=== PATIENT | male | born 1990 | race American Indian/Alaskan Native ===

== ENCOUNTER 2016-05-14 09:54 | Emergency (ER) | payer BC ==
[2016-05-14 10:00] VITALS: BP 124/80
--- NOTE | 2016-05-14 10:35 | Emergency Department Report ---
- General Chief Complaint: Upper Respiratory Infection Stated Complaint: SORE THROAT/STUFFY NOSE Time Seen by Provider: 05/14/16 10:18 Source: patient Mode of arrival: Ambulatory Limitations: No Limitations - History of Present Illness MD Complaint: cough, sore throat, sinus pain Severity: mild Associated Symptoms: chills, myalgias, headache, cough. denies: nausea, vomiting - Related Data Previous Rx's Medication Instructions Recorded Last Taken Type Ibuprofen [Motrin] 800 mg PO Q8H #30 tablet 04/27/14 07/25/14 10:00 Rx Acetaminophen/Codeine [Tylenol #3] 1 tab PO Q6H PRN #10 tab 08/09/14 Unknown Rx methOCARBAMOL [Robaxin] 500 mg PO Q6H PRN #14 tablet 08/09/14 Unknown Rx Gentamicin 0.3% Ophth Oint 1 applicatio OP Q4H #1 tube 07/31/15 Unknown Rx traMADol [Ultram 50 MG tab] 50 mg PO Q6HR PRN #10 tablet 07/31/15 Unknown Rx Azithromycin [Zithromax ORAL PWDR] 1 gm PO ONCE #1 packet 05/14/16 Unknown Rx predniSONE [Deltasone] 40 mg PO QDAY 5 Days 05/14/16 Unknown Rx Allergies Allergy/AdvReac Type Severity Reaction Status Date / Time No Known Allergies Allergy Verified 08/09/14 17:26 ED Review of Systems ROS: Stated complaint: SORE THROAT/STUFFY NOSE Other details as noted in HPI Constitutional: denies: chills, fever Eyes: denies: eye pain, eye discharge, vision change ENT: throat pain. denies: ear pain Respiratory: cough (green sputum), other Cardiovascular: denies: chest pain, palpitations Gastrointestinal: denies: abdominal pain, nausea, diarrhea Musculoskeletal: denies: back pain, joint swelling, arthralgia Skin: denies: rash, lesions ED Past Medical Hx - Past Medical History Previous Medical History?: No - Surgical History Past Surgical History?: Yes Hx Appendectomy: Yes Additional Surgical History: appendectomy - Social History Smoking Status: Never Smoker Substance Use Type: None - Medications Home Medications: Home Medications Medication Instructions Recorded Confirmed Last Taken Type Ibuprofen [Motrin] 800 mg PO Q8H #30 tablet 01/17/15 04/16/15 04/16/15 10:00 Rx Acetaminophen/Codeine [Tylenol #3] 1 tab PO Q6H PRN #10 tab 08/09/14 Unknown Rx methOCARBAMOL [Robaxin] 500 mg PO Q6H PRN #14 tablet 08/09/14 Unknown Rx Gentamicin 0.3% Ophth Oint 1 applicatio OP Q4H #1 tube 07/31/15 Unknown Rx traMADol [Ultram 50 MG tab] 50 mg PO Q6HR PRN #10 tablet 07/31/15 Unknown Rx Azithromycin [Zithromax ORAL PWDR] 1 gm PO ONCE #1 packet 05/14/16 Unknown Rx predniSONE [Deltasone] 40 mg PO QDAY 5 Days 05/14/16 Unknown Rx ED Physical Exam - General Limitations: No Limitations General appearance: alert, in no apparent distress - Head Head exam: Present: atraumatic - Eye Eye exam: Present: normal appearance - ENT ENT exam: Present: mucous membranes moist - Neck Neck exam: Present: normal inspection - Respiratory Respiratory exam: Present: normal lung sounds bilaterally. Absent: respiratory distress, wheezes, rales, rhonchi, stridor ED Course Vital Signs 05/14/16 09:58 Temperature 98.4 F Pulse Rate 86 Respiratory 16 Rate Blood Pressure 124/80 O2 Sat by Pulse 100 Oximetry Critical care attestation.: If time is entered above; I have spent that time in minutes in the direct care of this critically ill patient, excluding procedure time. ED Disposition Clinical Impression: URI (upper respiratory infection) Disposition: DISCHARGED TO HOME OR SELFCARE Is pt being admited?: No Does the pt Need Aspirin: No Condition: Stable Instructions: Upper Respiratory Infection (ED) Prescriptions: Azithromycin [Zithromax ORAL PWDR] 1 gm PO ONCE #1 packet predniSONE [Deltasone] 40 mg PO QDAY 5 Days
== END 2016-05-14 10:43 | disposition home or self-care (01) ==
LOC: ED 09:54
DX: J06.9 Acute upper respiratory infection, unspecified (principal); M79.1 Myalgia; R51 Headache
CPT/HCPCS: 99282